=== PATIENT | female | born 1960 ===

== ENCOUNTER 2020-12-16 05:45 | Day surgery (SDC) | payer OTHER ==
[~2020-12-16 05:45] MED LIST: ATORVASTATIN CA10 MG PO; COZAAR100 MG PO; GABAPENTIN100 M2 PO; SYNJARDY 12.5-1 EACH PO; SYNTHROID125 MCG PO; TOPROL XL50 M1 PO
[2020-12-16] MEDS ORDERED: MORGIDOX100 MG PO (10:44)
[2020-12-16] MEDS ORDERED: NAPR500T14 PO (10:44)
== END 2020-12-16 14:59 | disposition home or self-care (01) ==
LOC: CIR.AMB 05:45
PROVIDERS: ATTEND Obstetrics & Gynecology
DX: N84.0 Polyp of corpus uteri (principal); D25.0 Submucous leiomyoma of uterus; Z20.822 Contact with and (suspected) exposure to COVID-19